=== PATIENT | female | born 1985 | race Caucasian/White ===

== ENCOUNTER → 2017-07-25 | Outpatient (CLI) | payer BC ==
[~2017-07-25] MED LIST: ACET-1256 PO; CANA1TAB3 PO; CINN1CAP2 PO; HYDR-5688 PO; METF-384 PO; MULT-506 PO; SPR28 PO; VALA500T60 PO; VENL75CA73 PO
--- NOTE | 2017-07-25 07:37 | DIAGNOSTIC IMAGING REPORT ---
ABDOMEN COMPLETE (US) CLINICAL HISTORY: Abdominal pain and nausea. COMPARISON STUDY: No previous studies for comparison. FINDINGS: This exam is mildly compromised by suboptimal penetration. Hepatic echogenicity is increased consistent with fatty infiltration. A few hypoechoic foci within the liver suggest focal fatty sparing. The gallbladder is normal. There are no gallstones. There is no biliary ductal dilatation. The common bile duct measures 4 mm in caliber. The pancreas is obscured by overlying bowel gas. Borderline splenomegaly is noted. Spleen measures 13.2 cm in maximal dimension. The right kidney measures 15.2 x 6.2 x 7.2 cm and the left measures 13.6 x 6.7 x 7 cm. There is no hydronephrosis. Renal echogenicity, size and cortical thickness are normal. No renal calculi or masses are identified. Caliber of the abdominal aorta is normal. IMPRESSION: 1. No gallstones or biliary ductal dilatation. 2. Fatty infiltration of the liver. 3. Borderline splenomegaly. Electronically signed by: Wade Barclay M.D. 07/25/2017 7:36 AM Dictated Date/Time: 07/25/2017 7:33 AM
== END | disposition home or self-care (01) ==
LOC: C.ULTR 06:51
PROVIDERS: ATTEND Internal Medicine Gastroenterology
DX: R10.9 Unspecified abdominal pain (principal); R11.0 Nausea; K76.0 Fatty (change of) liver, not elsewhere classified

== ENCOUNTER → 2017-08-05 | Outpatient (CLI) | payer BC ==
[~2017-08-05] MED LIST changes: -ACET-1256 PO; -CANA1TAB3 PO; -CINN1CAP2 PO; -HYDR-5688 PO; -METF-384 PO; -MULT-506 PO; +SINCALIDE IV SCH; +SODIUM CHLORIDE 0.9% IV SCH; -SPR28 PO; -VALA500T60 PO; -VENL75CA73 PO
--- NOTE | 2017-08-05 15:01 | DIAGNOSTIC IMAGING REPORT ---
NUCLEAR MEDICINE HEPATOBILIARY SCAN WITH EJECTION FRACTION ANALYSIS CLINICAL HISTORY: ABD PAIN COMPARISON STUDY: Abdominal ultrasound dated 07/25/2017 FINDINGS: The patient was injected with 5.4 mCi of technetium 99 M Choletec. The gallbladder was first visualized on the 10 minute image. Hepatic excretion appeared unremarkable. There was normal passage of activity into small bowel. I1 hour, the patient was administered 2 mcg of sincalide utilizing a 30 minute intravenous infusion. The gallbladder ejection fraction was 30%. IMPRESSION: 1. No evidence of cystic duct obstruction 2. Mildly diminished gallbladder ejection fraction of 30% Electronically signed by: Bonifacio Martines M.D. 08/05/2017 3:00 PM Dictated Date/Time: 08/05/2017 2:56 PM
== END | disposition home or self-care (01) ==
LOC: C.NUCL 12:35
PROVIDERS: ATTEND Internal Medicine Gastroenterology
DX: R10.9 Unspecified abdominal pain (principal)

== ENCOUNTER 2017-09-24 07:52 | Day surgery (SDC) | payer BC ==
[2017-09-04 14:36] VITALS: BMI 35.0
[2017-09-24] VITALS (9 sets, daily range): BP systolic 108–140; BP diastolic 69–84; PULSE 88–103; TEMP 36.5–37.1; O2SAT 94–98
[~2017-09-24] VITALS: Ht 167.6 cm; Wt 100.0 kg
[~2017-09-24 07:52] MED LIST changes: +ACET-1256 PO; +CANA1TAB3 PO; +CEFUROXIME IV 1,500 MG in DEXTROSE 5% 100ML IV SCH; +CINN1CAP2 PO; +LACTATED RINGER'S 1000ML 1,000 ML IV SCH; +METF-384 PO; +MULT-506 PO; -SINCALIDE IV SCH; -SODIUM CHLORIDE 0.9% IV SCH; +SPR28 PO; +VALA500T60 PO; +VENL75CA73 PO
[2017-09-24] MEDS ORDERED: CEFUROXIME IV 1,500 MG in DEXTROSE 5% 100ML IV SCH (08:30)
[2017-09-24] MEDS ORDERED: LIDOCAINE HCL 2% 2 ML VIAL (20MG/ML) ONE (09:32)
[2017-09-24] MEDS ORDERED: FENTANYL CITRATE INJ 50 MCG/1 ML 2 ML VIAL ONE ×3 (09:32→11:18)
[2017-09-24] MEDS ORDERED: ROCURONIUM BROMIDE 10 MG/ML 5 ML VIAL IV ONE (09:32)
[2017-09-24] MEDS ORDERED: MIDAZOLAM HCL 1 MG/ML 2ML VIAL ONE (09:32)
[2017-09-24] MEDS ORDERED: PROPOFOL IV EMULSION 10 MG/ML 20 ML VIAL IV ONE (09:32)
--- NOTE | 2017-09-24 09:56 | History & Physical Bridge Note ---
H&P Re-Evaluation Bridge Note: I have examined the patient, reviewed the History & Physical and in the interval since the performance of the History & Physical I have noted the following changes of clinical significance: No changes noted
[2017-09-24] MEDS ORDERED: CONRAY 60% 50 ML VIAL ONE (10:03)
[2017-09-24] MEDS ORDERED: BUPIVACAINE 0.5 % 5 MG/1 ML MPF 30ML VIAL ONE (10:03)
[2017-09-24] MEDS ORDERED: GLYCOPYRROLATE INJ 0.2 MG/ML VIAL ONE (10:35)
[2017-09-24] MEDS ORDERED: ONDANSETRON INJ 2 MG/ML 2 ML VIAL ONE (10:35)
[2017-09-24] MEDS ORDERED: NEOSTIGMINE METHYLSULFATE 5 MG/5 ML SYR ONE (10:35)
[2017-09-24] MEDS ORDERED: KETOROLAC TROMETHAMINE 30 MG/ML VIAL ONE (10:35)
[2017-09-24] MEDS ORDERED: DEXAMETHASONE SOD INJ 4 MG/ML VIAL ONE (10:35)
--- NOTE | 2017-09-24 10:59 | [facility] Operative Report ---
Operative Report Operative Date Sep 24, 2017. Pre-Operative Diagnosis Biliary dyskinesia and biliary colic Post-Operative Diagnosis Biliary dyskinesia and biliary colic, chronic cholecystitis Procedure(s) Performed Laparoscopic Cholecystectomy Surgeon Dr. Brendan Chong Granite [employer]ricator Surgeon(s) Beti Paris PA-C Estimated Blood Loss 10 mL Findings adhesions, partially intrahepatic Specimens Permanent specimens A: Gallbladder and contents Drains None Anesthesia Type General Complication(s) none Disposition Recovery Room / PACU I attest to the content of the Intraoperative Record and any orders documented therein. Any exceptions are noted below.
[2017-09-24] MEDS ORDERED: ONDANSETRON INJ 2 MG/ML 2 ML VIAL IV PRN ×2 (11:15→11:30)
[2017-09-24] MEDS ORDERED: HYDROCODONE/ACETAMIN 5/325MG TAB PO PRN (11:15)
[2017-09-24] MEDS ORDERED: MoRPHine SULFATE 2 MG/ML CARP IV PRN (11:15)
[2017-09-24] MEDS ORDERED: PROMETHAZINE HCL INJ 25 MG in SODIUM CHLORIDE 0.9% 50ML 50 ML IV PRN (11:15)
[2017-09-24] MEDS ORDERED: MoRPHine SULFATE 4 MG/ML 1 ML CARP\\VIAL IV PRN (11:15)
--- NOTE | 2017-09-24 11:19 | OPERATIVE REPORT ---
DATE OF OPERATION: 09/24/2017 NAME OF OPERATION: Laparoscopic cholecystectomy. PREOPERATIVE DIAGNOSIS: Biliary colic. POSTOPERATIVE DIAGNOSIS: Same with chronic cholecystitis. STAFF SURGEON: Dr. Chong. CHAMBER WORKER: Beti Paris PA-C. ANESTHESIA: General. PROCEDURE: The patient was brought in the operating room and placed on the operating table in supine position. Her abdomen was prepped and draped in the usual fashion. 0.5% plain Marcaine was used to anesthetize all incisions. Incision was made above the umbilicus, carrying dissection down through significant adipose tissue, identifying the fascia, placing a Veress needle producing pneumoperitoneum. An 11 mm port was placed at this level and then under visualization, three 5 mm ports were placed, 1 cephalad and 2 laterally, all under visualization. At this point, the gallbladder was grasped and retracted. There were adhesions to the gallbladder consistent with chronic inflammation. These were taken down. Dissection was carried out at the servando hepatis. The gallbladder was partially intrahepatic. Cystic duct was identified, clipped and transected and the cystic artery identified, clipped and transected and the gallbladder dissected away from the liver bed. There was some scar tissue in the posterior wall. The gallbladder was placed in an Endobag. After appropriate hemostasis and irrigation, the Endobag was removed through the umbilical site and the umbilical fascia closed using interrupted 0 Vicryl suture. Subcutaneous tissue reapproximated using 2-0 plain catgut suture then the skin reapproximated using interrupted 5-0 Prolene suture. Dressings were applied and patient transferred to recovery room in stable condition. My assistant vice president helped with prepping, draping, entering the abdominal cavity, reflecting the gallbladder, retracting the gallbladder, removal of the gallbladder and then closure of the abdominal wounds. I attest to the content of the Intraoperative Record and any orders documented therein. Any exception s are noted below.
[2017-09-24] MEDS ORDERED: FLUMAZENIL 0.1 MG/1 ML 10 ML VIAL IV PRN (11:30)
[2017-09-24] MEDS ORDERED: IV FLUIDS COMPLETED PRN (11:30)
[2017-09-24] MEDS ORDERED: PROMETHAZINE HCL INJ 12.5 MG in SODIUM CHLORIDE 0.9% 50ML 50 ML IV PRN (11:30)
[2017-09-24] MEDS ORDERED: LABETALOL HCL IV 5 MG/ML 20ML IV PRN (11:30)
[2017-09-24] MEDS ORDERED: EpHEDrine SULFATE INJ 50 MG/ML AMP IV PRN (11:30)
[2017-09-24] MEDS ORDERED: FENTANYL CITRATE INJ 50 MCG/1 ML 2 ML VIAL IV PRN (11:30)
[2017-09-24] MEDS ORDERED: ATROPINE SULFATE 0.1 MG/ML 5ML SYR IV PRN (11:30)
[2017-09-24] MEDS ORDERED: NALOXONE HCL 0.4 MG/1 ML VIAL/CARP IV PRN (11:30)
--- NOTE | 2017-09-24 12:13 | Anesthesiology Progress Note ---
Anesthesia Post Op Note Date & Time Sep 24, 2017 at 12:13 Vital Signs Pain Intensity: 3 Vital Signs Past 12 Hours Date Time Temp Pulse Resp B/P (MAP) Pulse Ox O2 Delivery O2 Flow Rate FiO2 09/24/17 12:06 128/73 09/24/17 12:03 75 18 95 09/24/17 12:03 74 18 09/24/17 12:01 128/77 09/24/17 11:58 72 22 93 09/24/17 11:58 73 22 09/24/17 11:57 71 19 09/24/17 11:57 71 19 94 09/24/17 11:56 129/75 09/24/17 11:55 36.4 09/24/17 11:52 74 22 09/24/17 11:52 73 22 93 09/24/17 11:51 127/76 09/24/17 11:49 72 21 93 09/24/17 11:49 72 21 09/24/17 11:46 125/78 09/24/17 11:44 81 20 09/24/17 11:44 81 20 94 09/24/17 11:43 72 15 09/24/17 11:43 72 15 94 09/24/17 11:41 128/77 09/24/17 11:38 70 20 09/24/17 11:38 70 20 94 09/24/17 11:36 129/76 09/24/17 11:33 66 20 09/24/17 11:33 66 20 99 09/24/17 11:32 67 18 09/24/17 11:32 67 18 99 09/24/17 11:31 126/77 09/24/17 11:27 72 13 98 09/24/17 11:27 73 13 09/24/17 11:26 129/78 09/24/17 11:22 65 21 09/24/17 11:22 63 21 97 09/24/17 11:21 129/78 09/24/17 11:17 71 23 09/24/17 11:17 71 23 98 09/24/17 11:16 129/78 09/24/17 11:13 131/80 09/24/17 11:12 36.7 74 16 131/80 97 Oxymask 10 09/24/17 08:39 37.1 99 18 140/84 (102) 98 Room Air Notes Mental Status: alert / awake / arousable, participated in evaluation Pt Amnestic to Procedure: Yes Nausea / Vomiting: adequately controlled Pain: adequately controlled Airway Patency, RR, SpO2: stable & adequate BP & HR: stable & adequate Hydration State: stable & adequate Anesthetic Complications: no major complications apparent
[2017-09-24] MEDS ORDERED: GLUCOSE 40% GEL 15 GM TUBE PO PRN (13:00)
[2017-09-24] MEDS ORDERED: DEXTROSE 50% 50 ML SYR IV PRN (13:00)
[2017-09-24] MEDS ORDERED: GLUCOSE 10 TABS/TUBE PO PRN (13:00)
[2017-09-24] MEDS ORDERED: GLUCAGON FOR INJ 1 MG VIAL SQ PRN (13:00)
[2017-09-24] MEDS ORDERED: DC ALL PREVIOUSLY ORDERED DIABETES MEDS ONE (13:00)
[2017-09-24] MEDS: LACTATED RINGER'S 1000ML 1,000 ML IV SCH (13:40)
[2017-09-24] MEDS: HYDROCODONE/ACETAMIN 5/325MG TAB PO PRN ×2 (15:29→20:53)
[2017-09-24] MEDS ORDERED: HYDR-5688 PO (15:41)
--- NOTE | 2017-09-24 15:43 | Discharge Instructions ---
Discharge Instructions Date of Service Sep 24, 2017. Admission Reason for Admission: Biliary Dyskinesia, Biliary Colic Discharge Discharge Diagnosis / Problem: biliary colic Discharge Goals Goal(s): Decrease discomfort, Improve function, Improve disease control Activity Recommendations Activity Limitations: as noted below Lifting Limitations: no more than 25 pounds Exercise/Sports Limitations: until after follow-up appointment May Resume Sexual Activity: when tolerated Shower/Bathe: tomorrow Driving or Machine Use: resume 3 days after discharge . Instructions / Follow-Up Instructions / Follow-Up SPECIAL CARE INSTRUCTIONS: * Cover incisions and change daily for comfort/drainage. * May use ibuprofen for pain as tolerated. * Expect some swelling and bruising. Call your doctor if: * Temperature above 101 degrees * Pain not relieved by pain medicine ordered * There is increased drainage or redness from any incision * You have any unanswered questions or concerns [phone]. FOLLOW UP VISIT: If not already scheduled, please call the office for a follow-up visit. for next week- some sutures removed OFFICE PHONE NUMBER: Dr. Chong Office Current Hospital Diet Patient's current hospital diet: Diabetes Type 2 Diet Discharge Diet Recommended Diet: Regular Diet Procedures Procedures Performed: Laparoscopic Cholecystectomy Pending Studies Studies pending at discharge: no Medical Emergencies . Who to Call and When: Medical Emergencies: If at any time you feel your situation is an emergency, please call 911 immediately. . Non-Emergent Contact Non-Emergency issues call your: Primary Care Provider, Surgeon . "Provider Documentation" section prepared by Brendan Chong. . VTE Core Measure Inpt VTE Proph given/why not?: SCD's
[2017-09-24] MEDS: INSULIN HUMAN REGULAR SC SCH ×2 (18:24→21:44)
--- NOTE | 2017-09-24 19:20 | Medical Consult ---
Consultation Date of Consultation: Sep 24, 2017. Attending Physician: Brendan Chong M.D. Reason for Consultation: medical management consult History of Present Illness Pt is 32 y/o F with PMH DM II, Depression/anxiety seen in medical consultation s /p cholecystectomy today by Dr Chong. Pt reporting abdominal discomfort and vomiting for couple of months. Pt states feels some pressure sensation to RUQ and flank area. Doesn't feel like passing gas, no BM since surgery this morning. Feels pain is controlled. Has been ambulating in halls. Her oral glycemic meds were held prior to surgery. Pt ate dinner and tolerated well. Denies nausea or vomiting. Denies fever/chills,SOLIS, dizziness, syncope, vision changes, neck pain, CP, SOB, palpitations, cough, weakness, extremity edema, urinary symptoms. Family History Diabetes mellitus FH: CAD (coronary artery disease) Social History Smoking Status: Never Smoker Smokeless Tobacco Use: No Alcohol Use: occasionally Drug Use: none Marital Status: Housing Status: lives with family Occupation Status: employed Allergies Coded Allergies: Gluten (Verified Allergy, Unknown, GI UPSET,NAUSEA AND VOMITING, 09/24/17) Current Inpatient Medications Current Inpatient Medications Medications (Trade) Dose Ordered Sig/[place] Route Start Time Stop Time Status Last Admin Dose Admin Lactated Ringer's 1,000 ml @ 15 mls/hr Q24H IV 09/24/17 06:00 09/25/17 05:59 09/24/17 08:51 15 MLS/HR Venlafaxine HCl (effeXOR EXTENDED REL CAP) 75 mg QPM PO 09/24/17 21:00 10/24/17 20:59 Lactated Ringer's 1,000 ml @ 50 mls/hr Q20H IV 09/24/17 12:30 10/24/17 12:29 09/24/17 13:40 50 MLS/HR Acetaminophen/ Hydrocodone Bitart ([place] 5/325 Tab) 1 tab Q4 PRN PO 09/24/17 11:15 10/08/17 11:14 Acetaminophen/ Hydrocodone Bitart ([place] 5/325 Tab) 2 tab Q4 PRN PO 09/24/17 11:15 10/08/17 11:14 09/24/17 15:29 2 TAB Morphine Sulfate (MoRPHine SULFATE INJ) 2 mg Q4H PRN IV 09/24/17 11:15 10/08/17 11:14 Morphine Sulfate (MoRPHine SULFATE INJ) 4 mg Q4H PRN IV 09/24/17 11:15 10/08/17 11:14 Promethazine HCl 25 mg/Sodium Chloride 51 ml @ 204 mls/hr Q6H PRN IV 09/24/17 11:15 10/24/17 11:14 Ondansetron HCl (Zofran Inj) 4 mg Q6H PRN IV 09/24/17 11:15 10/24/17 11:14 Ondansetron HCl (Zofran Inj) 4 mg ONE PRN IV 09/24/17 11:30 Miscellaneous (Iv Fluids Completed) 1 ea PRN PRN N/A 09/24/17 11:30 09/24/18 11:29 Insulin Human Regular (novoLIN-R) SLIDING SCALE IF C... ACHS SC 09/24/17 17:15 10/24/17 17:14 09/24/17 18:24 8 UNITS Glucose (Glucose 40% Gel) 15-30 GRAMS 15 GRAMS... UD PRN PO 09/24/17 13:00 10/24/17 12:59 Glucose (Glucose Chew Tab) 4-8 Tablets 4 Tabl... UD PRN PO 09/24/17 13:00 10/24/17 12:59 Dextrose (Dextrose 50% 50ML Syringe) 25-50ML OF 50% DW IV FOR... UD PRN IV 09/24/17 13:00 10/24/17 12:59 Glucagon (Glucagon Inj) 1 mg UD PRN SQ 09/24/17 13:00 10/24/17 12:59 Review of Systems See HPI for pertinent positives & negatives. All other systems reviewed and were otherwise negative Physical Exam Date Time Temp Pulse Resp B/P (MAP) Pulse Ox O2 Delivery O2 Flow Rate FiO2 09/24/17 16:00 Room Air 09/24/17 15:23 36.8 98 18 108/69 (82) 96 Room Air 09/24/17 14:21 37.0 100 20 122/78 (93) 95 Room Air 09/24/17 13:09 36.8 90 19 123/80 (94) 95 Room Air 09/24/17 12:45 37.1 93 20 122/74 (90) 94 Room Air 09/24/17 12:15 94 Room Air 18 12:15 37.1 88 22 126/80 (95) 94 Room Air 09/24/17 12:15 94 Room Air 09/24/17 12:06 128/73 09/24/17 12:03 75 18 95 09/24/17 12:03 74 18 09/24/17 12:01 128/77 09/24/17 11:58 72 22 93 09/24/17 11:58 73 22 09/24/17 11:57 71 19 09/24/17 11:57 71 19 94 09/24/17 11:56 129/75 09/24/17 11:55 36.4 09/24/17 11:52 74 22 09/24/17 11:52 73 22 93 09/24/17 11:51 127/76 09/24/17 11:49 72 21 93 09/24/17 11:49 72 21 09/24/17 11:46 125/78 09/24/17 11:44 81 20 09/24/17 11:44 81 20 94 09/24/17 11:43 72 15 09/24/17 11:43 72 15 94 09/24/17 11:41 128/77 09/24/17 11:38 70 20 09/24/17 11:38 70 20 94 09/24/17 11:36 129/76 09/24/17 11:33 66 20 18 11:33 66 20 99 09/24/17 11:32 67 18 09/24/17 11:32 67 18 99 09/24/17 11:31 126/77 18 11:27 72 13 98 18 11:27 73 13 18 11:26 129/78 18 11:22 65 21 18 11:22 63 21 97 18 11:21 129/78 18 11:17 71 23 18 11:17 71 23 98 18 11:16 129/78 18 11:13 131/80 09/24/17 11:12 36.7 74 16 131/80 97 Oxymask 10 09/24/17 08:39 37.1 99 18 140/84 (102) 98 Room Air General Appearance: WD/WN, no apparent distress Head: normocephalic, atraumatic Eyes: normal inspection, PERRL, EOMI, sclerae normal ENT: pharynx normal, + pertinent finding (mucous membranes moist) Neck: supple, trachea midline Respiratory/Chest: lungs clear, normal breath sounds, no respiratory distress, no accessory muscle use Cardiovascular: regular rate, rhythm, no murmur, normal peripheral pulses Abdomen/GI: + pertinent finding (quiet bowel sounds, +dressings over abdominal incision sites, dressing without blood or drainage, slight tenderness to light palpation RUQ) Extremities/Musculoskelatal: no calf tenderness, no pedal edema, normal range of motion, non-tender Neurologic/Psych: alert, normal mood/affect, oriented x 3 Skin: normal color, warm/dry Laboratory Results Last 24 Hours Test 09/24/17 08:17 09/24/17 09:06 09/24/17 11:26 Bedside Glucose 180 mg/dl 183 mg/dl Assessment & Plan Pt post op day# 0 S/P lap cholecystectomy by Dr Chong -pain management per surgery -wound management per surgery -DVT prophylaxis per surgery -monitor H&H for acute blood loss anemia -monitor electrolytes and liver functions DM II Last HA1c 7.8 in 08/2016 -holding metformin and invokana -Novolog sliding scale -HA1c in am DEPRESSION/ANXIETY Stable -continue effexor DVT Prophylaxis -per surgery, SCD's, ambulation Disposition admitted med/surg Full Code Follows with Dr Oneal for routine care Pt was seen with Dr Montero. See addendum Pt will be followed by Dr Mcnamara for remaining hospital course ATTENDING ADDENDUM ; pt seen and examined, care co -ordinated with Selin Villarreal PA-C 32 yo F with hx of type 2 DM , underwent elective Laparoscopic cholecystectomy for chronic cholecystitis had uncomplicated kaiden and post operative state no complain of nausea /vomiting , no fever able to pass gas , no bowel movement yet ambulating independently in [address] way ordered for insulin SSI for diabetic management hold oral agent can be resumed on discharge LAB : CBC /BPM /LFT and Hb A1 c ordered in AM labs Chuyita Montero MD Additional Copies To Marcie Oneal M.D.
[2017-09-24] MEDS ORDERED: VENLAFAXINE HCL XR 75 MG CAPXR PO SCH (21:00)
[2017-09-24] MEDS ORDERED: ACETAMINOPHEN 325 MG TAB PO PRN (22:00)
[2017-09-24] MEDS ORDERED: NURSING VERBAL MED ORDER ONE (22:00)
[2017-09-25 03:34] VITALS: BP 111/72; PULSE 87; TEMP 36.4; O2SAT 98
[2017-09-25 06:34] LABS: HEMATOCRIT 37.6 % (37-47); HEMOGLOBIN 13.1 g/dL (12.0-16.0); MEAN CELL VOLUME 87.9 fL (80-100); MEAN CORPUSCULAR HEMOGLOBIN 30.6 pg (25-34); MEAN CORPUSCULAR HGB CONC 34.8 g/dl (32-36); MEAN PLATELET VOLUME 8.9 fL (7.4-10.4); PLATELET COUNT 245 K/uL (130-400); RED CELL DISTRIBUTION WIDTH CV 12.2 % (11.5-14.5); RED CELL DISTRIBUTION WIDTH SD 38.7 fL (36.4-46.3); WHITE BLOOD COUNT 9.36 K/uL (4.8-10.8)
--- NOTE | 2017-09-25 06:48 | DISCHARGE SUMMARY ---
PRINCIPAL DIAGNOSIS: Chronic cholecystitis. PROCEDURES: The patient underwent laparoscopic cholecystectomy. HISTORY OF PRESENT ILLNESS: The patient is a 32-year-old female who has been having episodes of what appears to be biliary colic with an abnormal HIDA scan ejection fraction. On 09/24/2017, she was brought into the hospital where she underwent laparoscopic cholecystectomy. She has done quite well overnight and has felt stable for discharge home today to be followed in the surgical clinic next week.
[2017-09-25 07:04] VITALS: BP 107/70; PULSE 73; TEMP 36.8; O2SAT 98
[2017-09-25 07:05] LABS: ALBUMIN 2.9 gm/dl (3.4-5.0); ALT/SGPT 60 U/L (12-78); AST/SGOT 53 U/L (15-37); BLOOD UREA NITROGEN 15 mg/dl (7-18); CALCIUM 8.4 mg/dl (8.5-10.1); CARBON DIOXIDE 24 mmol/L (21-32); CREATININE 0.42 mg/dl (0.60-1.20); GLUCOSE 145 mg/dl (70-99); POTASSIUM 3.6 mmol/L (3.5-5.1); SODIUM 135 mmol/L (136-145)
[2017-09-25 07:08] LABS: ALKALINE PHOSPHATASE 44 U/L (45-117); TOTAL PROTEIN 6.5 gm/dl (6.4-8.2)
[2017-09-25] MEDS: LACTATED RINGER'S 1000ML 1,000 ML IV SCH (08:30)
[2017-09-25] MEDS: HYDROCODONE/ACETAMIN 5/325MG TAB PO PRN (08:43)
[2017-09-25] MEDS: INSULIN HUMAN REGULAR SC SCH (08:47)
[2017-09-25 09:27] VITALS: BP 107/70; PULSE 73; TEMP 36.8; O2SAT 98
--- NOTE | 2017-09-25 10:39 | Anesthesiology Progress Note ---
Anesthesia Post Op Note Date & Time Sep 25, 2017 at 10:38 Vital Signs Vital Signs Past 12 Hours Date Time Temp Pulse Resp B/P (MAP) Pulse Ox O2 Delivery O2 Flow Rate FiO2 09/25/17 09:27 36.8 73 16 98 Room Air 09/25/17 07:20 Room Air 09/25/17 07:04 36.8 73 16 107/70 (82) 98 Room Air 09/25/17 03:34 36.4 87 16 111/72 (85) 98 Room Air 09/24/17 23:33 36.5 97 18 113/73 (86) 97 Room Air 09/24/17 23:20 Room Air Notes Mental Status: alert / awake / arousable, participated in evaluation Pt Amnestic to Procedure: Yes Nausea / Vomiting: adequately controlled Pain: adequately controlled Airway Patency, RR, SpO2: stable & adequate BP & HR: stable & adequate Hydration State: stable & adequate Anesthetic Complications: no major complications apparent
--- NOTE | 2017-09-25 10:40 | Anesthesiology Progress Note ---
Anesthesia Post Op Note Date & Time Sep 25, 2017 at 10:39 Vital Signs Vital Signs Past 12 Hours Date Time Temp Pulse Resp B/P (MAP) Pulse Ox O2 Delivery O2 Flow Rate FiO2 09/25/17 09:27 36.8 73 16 98 Room Air 09/25/17 07:20 Room Air 09/25/17 07:04 36.8 73 16 107/70 (82) 98 Room Air 09/25/17 03:34 36.4 87 16 111/72 (85) 98 Room Air 09/24/17 23:33 36.5 97 18 113/73 (86) 97 Room Air 09/24/17 23:20 Room Air Notes Mental Status: alert / awake / arousable, participated in evaluation Pt Amnestic to Procedure: Yes Nausea / Vomiting: adequately controlled Pain: adequately controlled Airway Patency, RR, SpO2: stable & adequate BP & HR: stable & adequate Hydration State: stable & adequate Anesthetic Complications: no major complications apparent
[2017-09-25 11:00] VITALS: Ht 167.6 cm; Wt 100.0 kg
== END 2017-09-25 09:54 | disposition home or self-care (01) ==
LOC: C.ACU 07:52 → C.MSW 08:30 → ENRESERV 11:57
PROVIDERS: ADMIT Surgery; ATTEND Surgery
DX: K82.8 Other specified diseases of gallbladder (principal); E11.9 Type 2 diabetes mellitus without complications; F32.9 Major depressive disorder, single episode, unspecified; E66.9 Obesity, unspecified; Z83.3 Family history of diabetes mellitus; Z82.49 Family history of ischemic heart disease and other diseases of the circulatory system